=== PATIENT | male | born 1995 | race Caucasian/White ===

== ENCOUNTER 2021-12-31 18:13 | Emergency (ER) | payer OTHER ==
[~2021-12-31] VITALS: Ht 182.9 cm; Wt 122.5 kg
[2021-12-31] MEDS ORDERED: KETO10TA2 PO (18:42)
[2021-12-31 18:49] VITALS: BP 122/85
== END 2021-12-31 18:52 | disposition home or self-care (01) ==
LOC: ER 18:14
DX: S93.602A Unspecified sprain of left foot, initial encounter (principal); M79.672 Pain in left foot; Z79.899 Other long term (current) drug therapy; X58.XXXA Exposure to other specified factors, initial encounter; Y93.89 Activity, other specified; Y92.89 Other specified places as the place of occurrence of the external cause; Y99.8 Other external cause status
CPT/HCPCS: 73630; 99283

== ENCOUNTER 2022-03-09 10:06 | Emergency (ER) | payer MEDICAID, OTHER ==
[~2022-03-09] VITALS: Ht 182.9 cm; Wt 120.8 kg
[~2022-03-09 10:06] MED LIST: KETO10TA2 PO
[2022-03-09 11:28] LABS: BASOPHILS % (AUTO) 0.3 % (0-1); EOSINOPHILS # (AUTO) 0.1 X10'3 (0-0.9); EOSINOPHILS % (AUTO) 1.7 % (0-6); HEMATOCRIT 46.5 % (42.0-52.0); LYMPHOCYTES # (AUTO) 1.5 X10'3 (1.1-4.8); LYMPHOCYTES % (AUTO) 18.8 % (21-51); MEAN CORPUSCULAR HEMOGLOBIN 29.1 PG (27.0-31.0); MEAN CORPUSCULAR HGB CONC 34.5 g/dL (33.0-36.5); MEAN CORPUSCULAR VOLUME 84.5 FL (78-98); MEAN PLATELET VOLUME 8.2 FL (7.4-10.4); MONOCYTES # (AUTO) 0.6 X10'3 (0-0.9); MONOCYTES % (AUTO) 7.9 % (2-12); NEUTROPHILS # (AUTO) 5.7 X10'3 (1.8-7.7); NEUTROPHILS % (AUTO) 71.3 % (42-75); PLATELET COUNT 329 X10'3 (140-440); RED BLOOD COUNT 5.51 X10'6 (4.70-6.10); RED CELL DISTRIBUTION WIDTH 14.9 % (11.5-14.5)
[2022-03-09 11:36] LABS: ALANINE AMINOTRANSFERASE 144 U/L (12-78); ALBUMIN 4.1 G/DL (3.4-5.0); ALKALINE PHOSPHATASE 115 IU/L (46-116); ANION GAP 11 (8-16); ASPARTATE AMINO TRANSFERASE 62 U/L (10-37); BLOOD UREA NITROGEN 13 MG/DL (7-18); BUN/CREATININE RATIO 14.8 (5.4-32.0); CALCIUM 9.2 MG/DL (8.5-10.1); CHLORIDE 103 MMOL/L (99-107); CREATININE 0.88 MG/DL (0.60-1.10); GLUCOSE 95 MG/DL (70-104); LIPASE 97 U/L (73-393); POTASSIUM 3.9 MMOL/L (3.5-5.1); SODIUM 139 MMOL/L (135-145); TOTAL CARBON DIOXIDE 24.6 MMOL/L (24-32); TOTAL PROTEIN 8.2 G/DL (6.4-8.2); eGFR > 90 ML/MIN
[2022-03-09 12:20] LABS: CLARITY,URINE CLEAR (Clear); COLOR,URINE YELLOW (Yellow); GLUCOSE, URINE NEGATIVE (Neg); KETONES,URINE NEGATIVE (Neg); LEUKOCYTE ESTERASE ,URINE NEGATIVE (Neg); NITRITES, URINE NEGATIVE (Neg); OCCULT BLOOD,URINE NEGATIVE (Neg); PROTEIN,URINE NEGATIVE (Neg); UROBILINOGEN,URINE 0.2 E.U/dL (0.2-1.0)
[2022-03-09 12:23] LABS: UA COLLECTION TYPE CLN CATCH MIDSTREAM
[2022-03-09 12:54] LABS: ETHANOL < 0.010 GM/DL (0.0-0.010)
[2022-03-09] MEDS ORDERED: normal saline 1000ML IV soln IVB ONE (12:55)
[2022-03-09] MEDS ORDERED: ondansetron/PF 4mg/2ml inj IV ONE (12:55)
[2022-03-09 13:45] VITALS: BP 130/77
[2022-03-09] MEDS ORDERED: ONDA4TAB12 PO (14:13)
== END 2022-03-09 14:42 | disposition home or self-care (01) ==
LOC: ER 10:07
DX: K52.89 Other specified noninfective gastroenteritis and colitis (principal); F12.10 Cannabis abuse, uncomplicated
CPT/HCPCS: 36415; 74176; 80053; 80320; 81003; 83690; 85025; 96361; 96374; 99284; J2405; J7030

== ENCOUNTER 2025-11-24 09:14 | Emergency (ER) | payer MEDICAID ==
[~2025-11-24] VITALS: Ht 185.4 cm; Wt 126.0 kg
[~2025-11-24 09:14] MED LIST changes: +AMOX-117 PO; +ONDA-243 PO
[2025-11-24] MEDS ORDERED: CLON0.1T PO (10:21)
[2025-11-24] MEDS ORDERED: METH27TA11 PO (10:21)
--- NOTE | 2025-11-24 10:27 | RADIOLOGY REPORT ---
CLINICAL INDICATION: WRIST PAIN TECHNIQUE: DI left WRIST, COMPLETE (3VW MIN), DI FOREARM,INCL.ONE JOINT COMPARISON: FOOT, COMPLETE (3VW MIN) on DOS: 12/31/21 FINDINGS/IMPRESSION: There is no evidence of acute fracture or dislocation. Soft tissues are unremarkable.
--- NOTE | 2025-11-24 10:47 | Physician Documentation ---
History of Present Illness ~ Chief Complaint: Bite-animal Stated Complaint: DOG BITE Time Seen by MD: 10:25 Primary Medical Doctor: Dr Carranza at [facility] Source: patient Mode of Arrival: EMS, Wheelchair Exam Limitations: no limitations HPI 30-year-old male with dog bite to left wrist and forearm. Patient was bitten by his own dog. Patient was yelling at his dad and having a fight when the dog got startled and grabbed his arm the dad was trying to get the dog and the mom was helping the son and the dog clamped on twice. Patient is up-to-date on tetanus. Tetanus within 5 years?: Yes (2022 PER PT) Medication Reconciliation Allergies: Coded Allergies: No Known Allergies (Unverified , 11/24/25) Scheduled Methylphenidate HCl (Methylphenidate ER), 1 TAB PO DAILY, (Reported) Scheduled PRN Clonidine HCl (Clonidine HCl), 1 TAB PO HS PRN for sleep, (Reported) Discontinued Medications Amox Tr/Potassium Clavulanate (Augmentin 875-125 Tablet), 1 TAB PO Q12H Discontinued Reason: patient no longer taking Ketorolac Tromethamine (Ketorolac Tromethamine), 1 TAB PO Q6H PRN Discontinued Reason: patient no longer taking ONDANSETRON ODT 4mg tablet (Ondansetron Odt), 1 TABLET PO Q6H PRN for nausea/vomiting Discontinued Reason: patient no longer taking Past Medical History Past Medical History: No Pertinent History Past Surgical History: noncontributory Alcohol Use: Occasionally Drug Use: marijuana Lives In: Home Occupation: employed Review of Systems All Other Systems at this time: Reviewed and Negative Integumentary: Reports: see HPI Physical Exam Vital Signs: RN Vital Signs have been reviewed: Yes, Temperature: 97.8, Source: Temporal, Heart Rate: 90, Respiratory Rate: 20, BP: 130/84, Pulse Oximetry: 98, Weight: 126.000 Oxygen Flow Rate: 0 Physical Exam General: Alert, no apparent distress. HEENT: moist mucous membranes. Neck: Full range of motion. Respiratory: No respiratory distress speaking in full sentences Chest: No accessory muscle use. Cardiovascular: Appears well perfused Neurologic: Oriented x4. Psychiatric: Normal mood and affect. Skin: Multiple lacerations from teeth and puncture wounds to the anterior and posterior left forearm wrist a couple of puncture wounds and abrasions to the hand circulation intact bleeding controlled Progress Results/Orders Results/Orders Orders - LINDSEY CARBAJAL NP Laceration/I&D Tray Set Up (11/24/25 10:50) Wound Care Orders (11/24/25 10:50) Completed Orders - LINDSEY CARBAJAL NP Lidocaine 1% W/Epi 1:100,000 (Xylocaine (11/24/25 10:35) Bacitracin Ointment (Bacitracin Ointment (11/24/25 10:50) Hydrocodone/Apap 10/325 ([place] 10/325mg (11/24/25 10:50) Medications Received in ER Medications (Trade) Dose Ordered Sig/Rebecca Route PRN Reason Start Time Stop Time Status Last Admin Dose Admin (Xylocaine 1%-EPI 1:100,000) 10 ml ONCE ONCE SQ 11/24/25 10:35 11/24/25 10:37 DC 11/24/25 11:40 10 ML (bacitracin ointment) 1 applic ONCE ONCE TP 11/24/25 10:50 11/24/25 10:51 DC 11/24/25 10:57 1 APPLIC ([place] 10/325mg tab) 1 tab ONCE ONCE PO 11/24/25 10:50 11/24/25 10:51 DC 11/24/25 10:57 1 TAB Vital Signs 11/24/25 11/24/25 11/24/25 11/24/25 09:26 10:12 10:12 10:57 Temp 97.8 Pulse 102 90 Resp 18 20 14 14 B/P (MAP) 125/77 130/84 (99) Pulse Ox 99 98 O2 Flow Rate 0 0 11/24/25 11:50 Resp 16 EKG/XRAY/CT/US/VASC/MRI Bone/Soft Tissue X-Ray (Ext.) #1: Additional Comment CLINICAL INDICATION: WRIST PAIN TECHNIQUE: DI left WRIST, COMPLETE (3VW MIN), DI FOREARM,INCL.ONE JOINT COMPARISON: FOOT, COMPLETE (3VW MIN) on DOS: 12/31/21 FINDINGS/IMPRESSION: There is no evidence of acute fracture or dislocation. Soft tissues are unremarkable. Bone/Soft Tissue X-Ray (Ext.) #2: Additional Comment CLINICAL INDICATION: WRIST PAIN TECHNIQUE: DI left WRIST, COMPLETE (3VW MIN), DI FOREARM,INCL.ONE JOINT COMPARISON: FOOT, COMPLETE (3VW MIN) on DOS: 12/31/21 FINDINGS/IMPRESSION: There is no evidence of acute fracture or dislocation. Soft tissues are unremarkable. Medical Decision Making Additional information obtaine: N/A Findings X-rays to evaluate for foreign body and fractures. Dog was a pimple. Wounds were cleaned and loosely closed. X-rays were negative for foreign body or fractures. Differential Dx:Considerations: Include: Fracture, Laceration, Neurovascular injury, Punture wound, Retained foreign body Departure Time of Disposition: 11:54 Disposition: 01 HOME / SELF CARE / HOMELESS Impression: Primary Impression: Dog bite Condition: Stable Discharge Instructions: Animal Bite, Adult Additional Instructions: Antibiotics as instructed. Sutures to be removed in 2 weeks. Monitor for any signs of infection feel free to return to the ER. You need to be evaluated by primary care in 1 week for routine checks while this is healing as it is very extensive Referrals: NO PRIMARY CARE PROVIDER (PCP) Prescriptions Ibuprofen (Ibu) 800 Mg Tablet 1 TAB PO Q8H for 7 Days, #21 TAB 0 Refills Prov: LINDSEY CARBAJAL NP 11/24/25 Amox Tr/Potassium Clavulanate (Augmentin 875-125 Tablet) 1 Each Tablet 1 TAB PO Q12H for 14 Days, #28 TAB Prov: LINDSEY CARBAJAL NP 11/24/25 Education Educated: Patient Educated regarding: diagnosis, treatment, need for follow up Signature Scribe Signature: No scribe Attestation: The note accurately reflects work and decisions made by me.Lindsey Carbajal - LONNY 11/24/25 10:50 LINDSEY CARBAJAL NP Nov 24, 2025 10:47
[2025-11-24] MEDS: bacitracin 15gm ointment TP ONE (10:57)
[2025-11-24] MEDS: HYDROcodone/acetaminophen 10/325mg tab PO ONE (10:57)
[2025-11-24] MEDS: LIDOcaine 1% W/epiNEPHrine 1:100,000 20ml vial SQ ONE (11:40)
[2025-11-24] MEDS ORDERED: AMOX-117 PO (11:55)
[2025-11-24] MEDS ORDERED: IBUP-864 PO (11:55)
[2025-11-24 12:07] VITALS: BP 104/86; PULSE 78; RESP 14; TEMP 98.2; O2SAT 96
== END 2025-11-24 12:15 | disposition home or self-care (01) ==
LOC: ER 09:15
DX: S51.812A Laceration without foreign body of left forearm, initial encounter (principal); F12.90 Cannabis use, unspecified, uncomplicated; Z79.899 Other long term (current) drug therapy; Z72.89 Other problems related to lifestyle; W54.0XXA Bitten by dog, initial encounter; Y93.89 Activity, other specified; Y92.89 Other specified places as the place of occurrence of the external cause; Y99.8 Other external cause status
CPT/HCPCS: 12002; 73090; 73110; 99284; J3490; 12001; A6258; A6449